=== PATIENT | male | born 1950 | race Caucasian/White ===

== ENCOUNTER 2020-09-26 04:31 | Day surgery (SDC) | payer OTHER, MEDICARE ==
[2020-09-24 17:40] VITALS: BMI 23.7
[~2020-09-26 04:31] MED LIST: BUPIVACAINE HCL/PF 0.5% (5MG/ML) 10 ML VIAL IJ ONE
[2020-09-26] MEDS ORDERED: MIDAZOLAM HCL 2 MG/2 ML SINGLE DOSE VIAL ONE (08:00)
[2020-09-26] MEDS ORDERED: PROPOFOL 20 ML ONE ×3 (08:13)
[2020-09-26] MEDS ORDERED: ceFAZolin SODIUM 1 GM VIAL IVPB ONE (08:17)
[2020-09-26] MEDS ORDERED: ONDANSETRON 4 MG/2 ML VIAL IVPUSH PRN (09:46)
[2020-09-26] MEDS ORDERED: PROMETHAZINE HCL 25 MG/1 ML VIAL IVPB PRN (09:46)
[2020-09-26] MEDS ORDERED: oxyCODONE HCL 5 MG TABLET PO PRN (09:46)
[2020-09-26] MEDS ORDERED: ACETAMINOPHEN 325 MG TABLET (FP) PO PRN (09:51)
[2020-09-26] MEDS ORDERED: ACETAMINOPHEN 325 MG TABLET (FP) ONE (12:20)
[2020-09-26] MEDS ORDERED: ACETAMINOPHEN 325 MG TABLET (FP) PO ONE (12:25)
[2020-09-26 13:07] VITALS: BP 133/85; PULSE 60; TEMP 97
== END 2020-09-26 13:37 | disposition home or self-care (01) ==
LOC: JASU-SURG 04:31
PROVIDERS: ATTEND Surgery
PROC: 06DY0ZZ Extraction of Lower Vein, Open Approach (ICD-10-PCS; principal; 2020-09-26 08:00)
DX: I83.811 Varicose veins of right lower extremity with pain (principal)
CPT/HCPCS: 88304-TC; 94760